=== PATIENT | female | born 1990 | race Caucasian/White ===

== ENCOUNTER 2019-11-04 11:12 | Emergency (ER) | payer MEDICAID ==
[~2019-11-04] VITALS: Ht 170.2 cm; Wt 8.2 kg
--- OUTSIDE RECORDS SUMMARY | ~2019-11-04 | XMS | Clinical Summary ---
Demographics + + + | Address | [address] | | | [place] [address] | + + + | Home Phone | | + + + | Preferred Language | Unknown | + + + | Marital Status | Single | + + + | Scientologist Affiliation | Unknown | + + + | Race | White | + + + | Ethnic Group | Not or | + + + Author + + + | Author | NON REVENUE LOCATIONS | + + + | Organization | NON REVENUE LOCATIONS | + + + | Address | Unknown | + + + | Phone | Unavailable | + + + Support + + +---------+ + | Name | Relationship | Address | Phone | + + +---------+ + | Agustin Cox | ECON | Unknown | | + + +---------+ + Care Team Providers + +------+ + | Care Drug Room Clerk Name | Role | Phone | + +------+ + | Itz Baker MD | PCP | | + +------+ + Source Comments REJI is fully live on both [facility] Ambulatory and [facility] InPatient.[facility] Allergies + + + + + + | Active Allergy | Reactions | Severity | Noted | Comments | | | | | Date | | + + + + + + | Cyclobenzaprine | Unknown | | 12/16/19 | | | | | | 14 | | + + + + + + Medications + + + +---------+------+------+-------+ | Medication | Sig | Dispensed | Refills | Star | End | Statu | | | | | | t | Date | s | | | | | | Date | | | + + + +---------+------+------+-------+ | clonazePAM 0.5 mg | Take 1 tablet by | 10 | 0 | 06/3 | | Activ | | oral tablet | mouth every day | tablet | | 0/20 | | e | | | | | | 14 | | | + + + +---------+------+------+-------+ | | Take 1-2 tablets by | 60 | 0 | 07/0 | | Activ | | HYDROcodone-acetamin | mouth every four to | tablet | | 1/20 | | e | | ophen (NORCO) 10-325 | six hours as needed | | | 14 | | | | mg oral tablet | for pain. | | | | | | + + + +---------+------+------+-------+ Active Problems Not on file Social History + +-------+ +--------+------+ | Tobacco Use | Types | Packs/Day | Years | Date | | | | | Used | | + +-------+ +--------+------+ | Never Assessed | | | | | + +-------+ +--------+------+ + + + | Sex Assigned at | Date Recorded | | | | + + + | Not on file | | + + + + + + + | Job Start Date | Occupation | Industry | + + + + | Not on file | Not on file | Not on file | + + + + + + + + | Travel History | Travel Start | Travel End | + + + + + + | No recent travel history available. | + + Last Filed Vital Signs Not on file Plan of Treatment Not on file Results Not on filefrom Last 3 Months Insurance + +--------+ +--------+-------+---------+--------+ | Payer | Benefi | Subscriber | Effect | Phone | Address | Type | | | t Plan | ID | ashok | | | | | | / | | Dates | | | | | | Group | | | | | | + +--------+ +--------+-------+---------+--------+ | SOCIAL STAFF WORKER MEDICAID | SOCIAL STAFF WORKER | xxxxxxxx | 12/24/19 | | | Medica | | | [place] | | 13-Pre | | | [place] | | | [place] | | sent | | | | + +--------+ +--------+-------+---------+--------+ + +--------+ +--------+ + + | Guarantor Name | Accoun | Relation to | Date | Phone | Billing Address | | | t Type | Patient | of | | | | | | | | | | + +--------+ +--------+ + + | Narda Solo | Person | Self | [birth year] | [address] | | [place] | al/Jeremiah | | 1991 | [phone] | [place] [address] | | | corrina | | | 0 (Home) | | + +--------+ +--------+ + +"
--- OUTSIDE RECORDS SUMMARY | ~2019-11-04 | XMS | Encounter Summary ---
Demographics + + + | Address | [address] | | | [place] [address] | + + + | Home Phone | | + + + | Preferred Language | Unknown | + + + | Marital Status | Single | + + + | Congregational Affiliation | Unknown | + + + | Race | White | + + + | Ethnic Group | Not or | + + + Author + + + | Author | [facility] | + + + | Organization | [facility] | + + + | Address | Unknown | + + + | Phone | Unavailable | + + + Support + + +---------+ + | Name | Relationship | Address | Phone | + + +---------+ + | Agustin Cox | ECON | Unknown | | + + +---------+ + Care Team Providers + +------+ + | Care Feller Machine Operator Name | Role | Phone | + +------+ + | Itz Baker MD | PCP | | + +------+ + Encounter Details +--------+ + + + + | Date | Type | Department | Care Team | Description | +--------+ + + + + | 12/16/ | Pharmacy | Outpatient Retail | | | | 2013 | Visit | [facility]acy | | | | | | [address] | | | | | | [place], [place] | | | | | | [address] | | | | | | [phone] | | | +--------+ + + + + Social History + +-------+ +--------+------+ | Tobacco [...] recent travel history available. | + + documented as of this encounter Plan of Treatment Not on filedocumented as of this encounter Visit Diagnoses Not on filedocumented in this encounter"
--- OUTSIDE RECORDS SUMMARY | ~2019-11-04 | XMS | Encounter Summary ---
Demographics + + + | Address | [address] | | | [place] [address] | + + + | Home Phone | | + + + | Preferred Language | Unknown | + + + | Marital Status | Single | + + + | Restorationism Affiliation | Unknown | + + + [...] Team Providers + +------+ + | Care Transportation Worker Name | Role | Phone | + +------+ + | Itz Baker MD | PCP | | + +------+ + Encounter Details +--------+ + + + + | Date | Type | Department | Care Team | Description | +--------+ + + + + | 12/15/ | Pharmacy | Outpatient Retail | | | | 2013 | Visit | Clinic Pharmacy | | | | | | [address] | | | | | | [place], [place] | | | | | | [address] | | | | | | [phone] | | | +--------+ + + + [...]
--- OUTSIDE RECORDS SUMMARY | ~2019-11-04 | XMS | Encounter Summary ---
Demographics + + + | Address | [address] | | | [place] [address] | + + + | Home Phone [...] Author + + + | Author | [facility] | + + + | Organization | [facility] | + + + | Address | Unknown | + + + | Phone | Unavailable | + + + Support + + +---------+ + | Name | Relationship | Address | Phone | + + +---------+ + | Agustin Cox | ECON | Unknown | | + + +---------+ + Care Team Providers + +------+ + | Care Print Project Manager Name | Role | Phone | + [...] Pharmacy | | | | | | [address] | | | | | | [place], [place] | | | | | | [address] | | | | | | [phone] | | | +--------+ + + + [...]
--- OUTSIDE RECORDS SUMMARY | ~2019-11-04 | XMS | Encounter Summary ---
Demographics + + + | Address | [address] | | | [place] [address] | + + + | Home Phone | | + + + | Preferred Language | Unknown | + + + | Marital Status | Single | + + + | Jain Affiliation | Unknown | + + + | Race | White | + + + | Ethnic Group | Not or | + + + Author + + + | Author | [facility] | + + + | Organization | [facility] | + + + | Address | Unknown | + + + | Phone | Unavailable | + + + Support + + +---------+ + | Name | Relationship | Address | Phone | + + +---------+ + | Agustin Cox | ECON | Unknown | | + + +---------+ + Care Team Providers + +------+ + | Care Petroleum Production Engineer Name | Role | Phone | + [...] Pharmacy | | | | | | [address] | | | | | | [place], [place] | | | | | | [address] | | | | | | [phone] | | | +--------+ + + + [...]
--- OUTSIDE RECORDS SUMMARY | ~2019-11-04 | XMS | Clinical Summary ---
Demographics + + + | Address | [address] | | | [place] [address] | + + + | Home Phone | | + + + | Preferred Language | Unknown | + + + | Marital Status | Single | + + + | Episcopalian Affiliation | Unknown | + + + [...] Team Providers + +------+ + | Care Poker Supervisor Name | Role | Phone | + +------+ + | Itz Baker MD | PCP | | + +------+ + Source Comments REJI is fully live on both [facility] Ambulatory and [facility] InPatient.[facility] Allergies + + + + [...] | | | + +--------+ +--------+-------+---------+--------+ | GARNETT FEEDER MEDICAID | GARNETT FEEDER | xxxxxxxx | 12/24/19 | | | [...] | Self | [birth year] | [address] | | [place] | al/Jeremiah | | 1991 | [phone] | [place] [address] | | | corrina | | | 0 (Home) | | + +--------+ +--------+ + +"
[~2019-11-04 11:12] MED LIST: AMBIEN5 MG PO; ANAPROX DS550 MG PO; BACTRIM DS TAB1 EACH PO; CEPHALEXIN500 MG PO; CLONAZEPAM0.5 MG PO; IBUPROFEN800 MG PO; KEFLEX500 MG PO; NORCO 10-325 T1 EACH PO; NORCO 5-325 TA1 EACH PO; PROZAC10 MG PO; SULFAMETHOXAZO1 EAC1 PO; TYLENOL325 MG PO; ULTRAM50 MG PO
--- OUTSIDE RECORDS SUMMARY | 2019-11-04 11:14 | XMS ---
PreManage Notification: TERRIE TILLMAN Security Manager Administrative Events No recent Security Events currently on file CRITERIA MET - PDMP CARE PROVIDERS BEKAH CORBIN [facility] Medicine: Geriatric Medicine Current PHONE: Unknown Cleve has no Care Guidelines for this patient. Digna VISIT COUNT (12 MO.) 1 MAHESH Fajardo TOTAL 1 NOTE: Visits indicate total known visits. ED/UCC VISIT TRACKING (12 MO.) 11/04/2019 11:13 [facility] [place] TYPE: Emergency COMPLAINT: - INTOXICATION INPATIENT VISIT TRACKING (12 MO.) No inpatient visits to display in this time frame [id number]
[2019-11-04] MEDS ORDERED: BUPRENORPHINE HC2 MG SL (11:21)
[2019-11-04] MEDS ORDERED: DULOXETINE HCL60 MG PO (11:22)
[2019-11-04] MEDS ORDERED: DOXEPIN HCL150 MG PO (11:23)
[2019-11-04] MEDS ORDERED: BUSPIRONE HCL10 MG PO (11:23)
== END 2019-11-04 14:40 | disposition home or self-care (01) ==
LOC: ED 11:12
DX: F13.10 Sedative, hypnotic or anxiolytic abuse, uncomplicated (principal); J45.909 Unspecified asthma, uncomplicated; F17.200 Nicotine dependence, unspecified, uncomplicated; Z88.8 Allergy status to other drugs, medicaments and biological substances; Z79.899 Other long term (current) drug therapy
CPT/HCPCS: 71045; 80053; 80176; 81001; 84703; 85025; 99284-25; G0480

== ENCOUNTER 2020-12-26 17:02 | Emergency (ER) | payer OTHER ==
[~2020-12-26] VITALS: Ht 170.2 cm; Wt 81.7 kg
[~2020-12-26 17:02] MED LIST changes: +BUPRENORPHINE HC2 MG SL; +BUSPIRONE HCL10 MG PO; +DOXEPIN HCL150 MG PO; +DULOXETINE HCL60 MG PO; +VYVANSE70 MG PO
[2020-12-26] MEDS ORDERED: PERMETHRIN60 GM TOP (17:32)
== END 2020-12-26 18:11 | disposition home or self-care (01) ==
LOC: ED 17:02
DX: L30.9 Dermatitis, unspecified (principal); J45.909 Unspecified asthma, uncomplicated; Z87.891 Personal history of nicotine dependence; Z88.8 Allergy status to other drugs, medicaments and biological substances; Z79.899 Other long term (current) drug therapy
CPT/HCPCS: 99283

== ENCOUNTER 2021-02-07 12:51 | Emergency (ER) | payer OTHER ==
[~2021-02-07] VITALS: Ht 162.6 cm; Wt 65.0 kg
[~2021-02-07 12:51] MED LIST changes: +PERMETHRIN60 GM TOP
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
[2021-02-07] MEDS ORDERED: METHOCARBAMOL500 MG PO (14:13)
[2021-02-07] MEDS ORDERED: METHYLPHENIDATE27 MG PO (14:14)
[2021-02-07] MEDS ORDERED: CLONAZEPAM0.5 MG PO (14:14)
[2021-02-07] MEDS ORDERED: BUPRENORPHINE HC8 MG SL (14:14)
[2021-02-07] MEDS ORDERED: MOBIC7.5 MG PO (14:15)
[2021-02-07] MEDS ORDERED: PROMETHAZINE HC25 M1 PO (16:58)
== END 2021-02-07 17:05 | disposition home or self-care (01) ==
LOC: ED 12:51
DX: R11.2 Nausea with vomiting, unspecified (principal); R10.10 Upper abdominal pain, unspecified; R19.7 Diarrhea, unspecified; J45.909 Unspecified asthma, uncomplicated; Z20.822 Contact with and (suspected) exposure to COVID-19; Z88.8 Allergy status to other drugs, medicaments and biological substances; Z79.899 Other long term (current) drug therapy
CPT/HCPCS: 80053; 83690; 85025; 96372; 99284; C9803; J2550; U0003

== ENCOUNTER 2021-04-10 10:32 | Emergency (ER) | payer OTHER ==
[~2021-04-10] VITALS: Ht 162.6 cm; Wt 66.7 kg
[~2021-04-10 10:32] MED LIST changes: +ARIPIPRAZOLE30 MG PO; +BUPRENORPHINE HC8 MG SL; +DOXYCYCLINE MO100 MG PO; +METHOCARBAMOL500 MG PO; +METHYLPHENIDATE27 MG PO; +MOBIC7.5 MG PO; +PROMETHAZINE HC25 M1 PO
--- OUTSIDE RECORDS SUMMARY | 2021-04-10 10:36 | XMS ---
PreManage Notification: TERRIE TILLMAN Security Anesthesiologist/Physician Events 1 event(s) in the past 18 months Most recent security events: Elopement at [facility] 03/05/2021 16:25 - Other Details: PATIENT LWBS CRITERIA MET - PDMP CARE PROVIDERS JESSI ANDREA Physician 02/08/2021-Current PHONE: Unknown BEKAH CORBIN Family Medicine: Geriatric Medicine Current PHONE: Unknown Cleve has no Care Guidelines for this patient. E.D. VISIT COUNT (12 MO.) [address] [place] [address] TOTAL 5 NOTE: Visits indicate total known visits. ED/UCC VISIT TRACKING (12 MO.) 04/10/2021 10:[address] [facility] [place] TYPE: Emergency COMPLAINT: - VAGINAL PAIN, ABD PAIN 03/05/2021 16:[address] [facility] [place] TYPE: Emergency COMPLAINT: - SKIN PROBLEM 02/07/2021 12:52 [facility] [place] TYPE: Emergency COMPLAINT: - FLU SYMPTOMS DIAGNOSES: - Allergy status to other drugs, medicaments and biological substances - Diarrhea, unspecified - Nausea with vomiting, unspecified - Upper abdominal pain, unspecified - Unspecified asthma, uncomplicated - Other rat exterminator (current) drug therapy 12/26/2020 17:03 [facility] [place] TYPE: Emergency COMPLAINT: - SKIN PROBLEM DIAGNOSES: - Other rat exterminator (current) drug therapy - Allergy status to other drugs, medicaments and biological substances - Dermatitis, unspecified - Personal history of nicotine dependence - Unspecified asthma, uncomplicated 10/04/2020 12:08 [facility] [place] [facility] [place] TYPE: Emergency COMPLAINT: - SKIN CONDITION, NAUSEA, FEVER INPATIENT VISIT TRACKING (12 MO.) No inpatient visits to display in this time frame [id number]
== END 2021-04-10 12:39 | disposition home or self-care (01) ==
LOC: ED 10:32
DX: R10.2 Pelvic and perineal pain (principal); J45.909 Unspecified asthma, uncomplicated; Z88.8 Allergy status to other drugs, medicaments and biological substances; Z91.040 Latex allergy status; Z79.899 Other long term (current) drug therapy
CPT/HCPCS: 76830; 76856; 81001; 84703; 99284-25; A9270

== ENCOUNTER 2021-05-10 13:34 | Emergency (ER) | payer OTHER ==
[~2021-05-10] VITALS: Ht 162.6 cm; Wt 61.7 kg
--- OUTSIDE RECORDS SUMMARY | 2021-05-10 13:42 | XMS ---
PreManage Notification: TERRIE TILLMAN Security Offbearer Events 1 event(s) in the past 18 months Most recent security events: Elopement at [facility] 03/05/2021 16:25 - Other Details: PATIENT LWBS CRITERIA MET - [facility] - 2 Visits in 30 Days CARE PROVIDERS JESSI ANDREA Physician 02/08/2021-Current PHONE: Unknown BEKAH CORBIN Family Medicine: Geriatric Medicine Current PHONE: Unknown Cleve has no Care Guidelines for this patient. Digna VISIT COUNT (12 MO.) [address] [place] [address] TOTAL 6 NOTE: Visits indicate total known visits. ED/UCC VISIT TRACKING (12 MO.) 05/10/2021 13:[address] [facility] [place] TYPE: Emergency COMPLAINT: - NECK INJURY 04/10/2021 10:[address] [facility] [place] TYPE: Emergency COMPLAINT: - VAGINAL PAIN, ABD PAIN DIAGNOSES: - Lower abdominal pain, unspecified - Unspecified asthma, uncomplicated - Other retirement (current) drug therapy - Pelvic and perineal pain - Latex allergy status - Allergy status to other drugs, medicaments and biological substances 03/05/2021 16:25 [facility] [place] TYPE: Emergency COMPLAINT: - SKIN PROBLEM 02/07/2021 12:52 [facility] [place] TYPE: Emergency COMPLAINT: - FLU SYMPTOMS DIAGNOSES: - Allergy status to other drugs, medicaments and biological substances - Diarrhea, unspecified - Nausea with vomiting, unspecified - Upper abdominal pain, unspecified - Unspecified asthma, uncomplicated - Other retirement (current) drug therapy 12/26/2020 17:03 [facility] [place] TYPE: Emergency COMPLAINT: - SKIN PROBLEM DIAGNOSES: - Other retirement (current) drug therapy - Allergy status to other drugs, medicaments and biological substances - Dermatitis, unspecified - Personal history of nicotine dependence - Unspecified asthma, uncomplicated 10/04/2020 12:08 [facility] [place] TYPE: Emergency COMPLAINT: - SKIN CONDITION, NAUSEA, FEVER INPATIENT VISIT TRACKING (12 MO.) No inpatient visits to display in this time frame [id number]
[2021-05-10] MEDS ORDERED: VYVANSE70 MG PO (14:18)
[2021-05-10] MEDS ORDERED: CLINDAMYCIN PHO60 ML TOP (14:19)
[2021-05-10] MEDS ORDERED: NAPROSYN500 MG PO (16:58)
== END 2021-05-10 17:20 | disposition home or self-care (01) ==
LOC: ED 13:34
DX: S16.1XXA Strain of muscle, fascia and tendon at neck level, initial encounter (principal); Y04.8XXA Assault by other bodily force, initial encounter; J45.909 Unspecified asthma, uncomplicated; Z88.8 Allergy status to other drugs, medicaments and biological substances; Z91.040 Latex allergy status; Z79.899 Other long term (current) drug therapy
CPT/HCPCS: 70498; 72125; 84703; 99284-25; Q9967

== ENCOUNTER 2021-05-30 09:56 | Emergency (ER) | payer OTHER ==
[~2021-05-30] VITALS: Ht 162.6 cm; Wt 63.0 kg
[~2021-05-30 09:56] MED LIST changes: +ARIPIPRAZOLE20 MG PO; +BUPRENORPHINE HC8 MG PO; -BUPRENORPHINE HC8 MG SL; +CLINDAMYCIN PHO60 ML TOP; +DOXYCYCLINE HY100 MG PO; +HYDROXYZINE PAM25 MG PO; +HYOSCYAMINE0.125 M1 SL; +ISENTRESS400 MG PO; +LEVOTHYROXINE50 MCG PO; +NAPROSYN500 MG PO; +NAPROXEN500 MG PO; +NICOTINE1 EAC2 TD; +OXCARBAZEPINE150 MG PO; +TRUVADA 200 MG1 EACH PO
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
[2021-05-31] MEDS ORDERED: ABILIFY15 MG PO (07:48)
== END 2021-05-31 09:14 | disposition home or self-care (01) ==
LOC: ED 09:56
DX: F29 Unspecified psychosis not due to a substance or known physiological condition (principal); J45.909 Unspecified asthma, uncomplicated; Z88.8 Allergy status to other drugs, medicaments and biological substances; Z91.040 Latex allergy status; Z79.899 Other long term (current) drug therapy
CPT/HCPCS: 80053; 81001; 84443; 84703; 85025; 99284; G0480

== ENCOUNTER 2021-06-08 12:47 | Emergency (ER) | payer OTHER ==
[~2021-06-08] VITALS: Ht 162.6 cm; Wt 62.2 kg
--- NOTE | ~2021-06-08 | EKG ---
[facility] [address] [facility] [place], [place] [address] Draft EK completed, results pending confirmation PATIENT NAME: TERRIE TILLMAN Electrocardiogram DATE OF : 89 PHYSICIAN: PRELIMINARY REPORT #: [id number] REPORT IS CONFIDENTIAL AND NOT TO BE RELEASED WITHOUT AUTHORIZATION
[~2021-06-08 12:47] MED LIST changes: +ABILIFY15 MG PO
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
== END 2021-06-08 19:50 | disposition home or self-care (01) ==
LOC: ED 12:47
DX: T42.8X1A Poisoning by antiparkinsonism drugs and other central muscle-tone depressants, accidental (unintentional), initial encounter (principal); E87.6 Hypokalemia; J45.909 Unspecified asthma, uncomplicated; Z88.8 Allergy status to other drugs, medicaments and biological substances; Z91.040 Latex allergy status; Z79.899 Other long term (current) drug therapy; Z20.822 Contact with and (suspected) exposure to COVID-19
CPT/HCPCS: 51701; 80053; 81001; 84443; 84703; 85025; 93005; 93010; 99285-25; C9803; G0480; J1790; J2550; J7030; U0003